=== PATIENT | male | born 1940 | race Caucasian/White ===

== ENCOUNTER → 2020-05-27 | Day surgery (SDC) | payer OTHER, BC ==
[~2020-05-27] VITALS: Ht 188 cm; Wt 111.1 kg
[2020-05-27 19:12] VITALS: BP 169/78
[2020-05-27 19:34] VITALS: BP 156/72
== END | disposition home or self-care (01) ==
LOC: DU 07:30 → EDUNIT# 07:30 → EDSTATUS 07:30 → DS 10:17
PROVIDERS: ATTEND Orthopaedic Surgery
DX: S46.012A Strain of muscle(s) and tendon(s) of the rotator cuff of left shoulder, initial encounter (principal); S46.212A Strain of muscle, fascia and tendon of other parts of biceps, left arm, initial encounter; S42.202A Unspecified fracture of upper end of left humerus, initial encounter for closed fracture; I10 Essential (primary) hypertension; I25.10 Atherosclerotic heart disease of native coronary artery without angina pectoris; I35.0 Nonrheumatic aortic (valve) stenosis; E11.9 Type 2 diabetes mellitus without complications; E78.00 Pure hypercholesterolemia, unspecified; E03.9 Hypothyroidism, unspecified; Z95.1 Presence of aortocoronary bypass graft; Z79.899 Other long term (current) drug therapy; Z79.82 Long term (current) use of aspirin; Z79.84 Long term (current) use of oral hypoglycemic drugs; X58.XXXA Exposure to other specified factors, initial encounter; Y93.89 Activity, other specified; Y92.89 Other specified places as the place of occurrence of the external cause; Y99.8 Other external cause status
CPT/HCPCS: 82962; C1713; J0131; J0330; J0690; J1170; J2405; J2704; J3010; J3370; J3490; J7030; J7120